=== PATIENT | female | born 1950 | race Caucasian/White ===

== ENCOUNTER 2016-10-23 16:30 | Emergency (ER) | payer MEDICARE, BC ==
[2016-10-23 16:48] LABS: BASOPHIL# 0.1 X 10^3uL (0.0-0.1); BASOPHILS 0.7 % (0.0-2.0); EOSINOPHILS 1.6 % (0.0-6.0); EOSINOPHILS# 0.1 X 10^3uL (0.0-0.4); HEMATOCRIT 49.9 % (36.0-48.0); HEMOGLOBIN 17.1 g/dL (12.0-16.0); LYMPHOCYTES 32.6 % (20.0-40.0); LYMPHOCYTES# 2.3 X 10^3uL (0.8-3.8); MEAN CELL VOLUME 86.9 fL (80.0-100.0); MEAN CORPUS. HGB CONCENTRATION 34.2 g/dL (32.0-36.0); MEAN CORPUSCULAR HEMOGLOBIN 29.8 pg (29.0-35.0); MEAN PLATELET VOLUME 7.6 fL (7.4-10.4); MONOCYTES 7.6 % (2.0-10.0); MONOCYTES# 0.5 X 10^3uL (0.2-1.0); NEUTROPHILS 57.5 % (54.0-75.0); NEUTROPHILS# 4.2 X 10^3uL (2.6-6.7); PLATELET COUNT 233 X 10^3uL (130-440); RED BLOOD COUNT 5.74 X 10^6uL (4.20-6.10); RED CELL DISTRIBUTION WIDTH 14.8 % (11.5-14.5); WHITE BLOOD COUNT 7.2 X 10^3uL (3.9-10.7)
[2016-10-23 16:57] LABS: BLOOD UREA NITROGEN 17 mg/dL (7-17); CALCIUM 10.6 mg/dL (8.4-10.2); CHLORIDE 96 mmol/L (98-107); CREATININE 0.8 mg/dL (0.5-1.0); EST GLOMERULAR FILTRATION RATE > 60 mL/min; GLUCOSE 96 mg/dL (70-100); INR 1.2; PARTIAL THROMBOPLASTIN TIME 28 sec (24-38); SODIUM 139 mmol/L (137-145)
[2016-10-23 17:09] LABS: TROPONIN I < 0.012 ng/mL (0.00-0.034)
--- NOTE | 2016-10-23 17:34 | ER NURSING DOCUMENTATION ---
Nurse's Notes [facility] ([place], [place]) Name:Azalia Nielson Age:66 yrs Sex:Female :1950 Arrival Date:10/23/2016 Time:16:30 BedTrauma-C Private MD: Diagnosis:Atrial Fibrillation;Atypical Chest Pain;Hypokalemia Presentation: 10/23 16:30 Transition of care: patient was not received from another setting of care. AIR CAT nf ACTIVATION no. 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 Risk considerations: negative evaluation for symptoms or risks of deep vein thrombosis or pulmonary embolism. Notified ED Physician of patient's arrival and CC Dr. Deng notified. 16:30 Method Of Arrival: Walk In 16:30 Presenting complaint: Patient states: arrived in [place] 2 days ago from [place], [place] today went up an additional 2000 feet in altitude and developed chest pressure and palpitations and lightheadedness, symptoms resolved prior to arriving in ER, history of respiratory and cardiovascular disease. 16:37 Acuity: DAMIEN 2 st Triage Assessment: 16:30 General: Appears in no apparent distress, well nourished, well groomed, Behavior is nf anxious, pleasant. Pain: Denies pain. Neuro: No deficits noted. Cardiovascular: Capillary refill < 3 seconds Rhythm is atrial fibrillation with rapid ventricular response Chest pain. Cardiovascular: Reports lightheadedness, prior to arrival experienced left sided chest pain and lightheadedness and palpitations at altitude around 9000 feet. Respiratory: Respiratory effort is even, unlabored, Respiratory pattern is regular. GI: Denies nausea, vomiting. : No deficits noted. Historical: - Allergies: narcotics; - Home Meds: 1. Spironolactone Oral 2. aliquis 3. Lasix Oral 4. valsartan oral - PMHx: pulmonary HTN; right heart failure; pleural effusion; ATRIAL FIB; - PSHx: NA ; - Tetanus: Other NA today. - Ebola Screening: : No symptoms or risks identified at this time. . - Immunization history: NA today. - Social history: Smoking status: Patient states former smoker of tobacco. Patient/guardian denies using alcohol, street drugs. Screenin:40 Infectious Disease Risk None. Abuse screen: Denies threats or abuse. Nutritional nf screening: No deficits noted. Assessment: 16:30 Pain: Denies pain. NA Pain began NA; pain resolved [employer]. Cardiovascular: Heart tones nf present. Respiratory: No deficits noted. 16:45 Reassessment: Patient denies pain at this time. Patient states feeling better. Patient nf states symptoms have improved. Vital Signs: 16:34 BP 138 / 101; Pulse 117; Resp 22; Temp 98.1(O); Pulse Ox 95% on R/A; Weight 65.77 kg; nf Height 5 ft. 7 in. (170.18 cm); Pain 0/10; 17:03 BP 171 / 100; Pulse 90; Resp 18; Pulse Ox 99% on R/A; Pain 0/10; nf 17:34 BP 141 / 81; Pulse 87; Resp 16; Pulse Ox 96% on R/A; Pain 0/10; nf 16:34 Body Mass Index 22.71 (65.77 kg, 170.18 cm) nf ED Course: 16:30 Patient arrived in ED. ama 16:30 Arm band placed on Bed in low position Call Light in Reach Gowned HOB Elevated Side nf rails up x1. Family accompanied patient. 16:30 Cardiac Monitoring On for Nurse Monitoring only. Pulse Ox - RN Monitoring Only NIBP On nf - RN Monitoring Only. Door closed. Noise minimized. Lights dimmed. Moved to private room. Verbal reassurance given. Warm blanket given. Pillow given. 16:34 EKG done. (by ED staff). Reviewed by Berry Deng MD. nf 16:35 Oxygen Oxygen administration via nasal cannula @ 2L/min. nf 16:37 Berry Deng MD is Attending Physician. sc 16:[address] 16:40 Inserted peripheral IV: 20 gauge in right antecubital area and blood collected. sc1 16:40 Valuables Remains with patient Adult w/ patient. nf 16:48 Jennifer Vásquez, BETTIE is Primary Nurse. nf 16:57 EKG attached sc1 Administered Medications: 17:30 Drug: K-Lyte Effervescent Tablet 50 mEq; Route: PO; nf 17:34 Follow up: Response: Medication administered at discharge. nf Outcome: 17:13 Discharge ordered by . sc 17:34 Patient left the ED. nf 17:34 Discharged to home ambulatory, with family, with friend. nf 17:34 Condition: improved 17:34 Discharge Assessment: Patient awake, alert and oriented x 3. No cognitive and/or functional deficits noted. Patient verbalized understanding of disposition instructions. 17:34 Discharge instructions given to patient, family, friend, Instructed on discharge instructions, follow up and referral plans. Demonstrated understanding of instructions. 17:34 IV D/Skyler 10/24 17:12 Discharge F/U Call: Unable to reach: left voicemail: [email or web address] Signatures: Bailey Hernandez RN RN st Campbell, Sandy, RN RN sc Jennifer Vásquez RN RN nf Chew, Scott, MD MD sc Strickland, Doug Michel ms, Reg Reg Claudia Ferrara mk4
--- NOTE | 2016-10-23 17:35 | ER PHYSICIAN DOCUMENTATION ---
Physician Documentation [facility] Name:Azalia Nielson Age:66 yrs Sex:Female :1950 Arrival Date:10/23/2016 Time:16:30 BedTrauma-C Private MD: Berry West Disposition: 10/23 17:11 Critical Care: not applicable. sc Disposition: 10/23/16 17:13 Discharged to Home/Self Care. Impression: Atrial Fibrillation, Atypical Chest Pain, Hypokalemia. - Condition is Fair. - Discharge Instructions: ATRIAL FIBRILLATION, HYPOKALEMIA, CHEST PAIN Atypical - CHEST PAIN, Uncertain Cause. - Medical Reconciliation form form. - Follow up: Private Physician; When: 1 - 2 days; Reason: Recheck today's complaints, Continuance of care. - Problem is new. - Symptoms have improved. HPI: 16:58 This 66 yrs old Female presents to ER via Walk In with complaints of Chest sc Pressure. 16:58 The patient or guardian reports chest pain that is located primarily in the anterior sc chest wall. Onset: today. The pain does not radiate. There has been no movement of pain. Associated signs and symptoms: Pertinent positives: dizziness, lightheadedness, palpitations. The chest pain is described as a pressure. Duration: The patient or guardian reports a single episode, that lasted 30 minute(s). Severity of pain: At its worst the pain was moderate in the emergency department the pain has resolved and did so earlier today, improved immediately with lower altitude. Historical: - Allergies: narcotics; - Home Meds: 1. Spironolactone Oral 2. aliquis 3. Lasix Oral 4. valsartan oral - PMHx: pulmonary HTN; right heart failure; pleural effusion; ATRIAL FIB; - PSHx: NA ; - Tetanus: Other NA today. - Ebola Screening: : No symptoms or risks identified at this time. . - Immunization history: NA today. - Social history: Smoking status: Patient states former smoker of tobacco. Patient/guardian denies using alcohol, street drugs. ROS: 17:00 Constitutional: Negative for fever, chills, and weight loss. sc Eyes: Negative for injury, pain, redness, and discharge. ENT: Negative for injury, pain, and discharge. Neck: Negative for injury, pain, and swelling. Respiratory: Negative for shortness of breath, cough, wheezing, and pleuritic chest pain. Abdomen/GI: Negative for abdominal pain, nausea, vomiting, diarrhea, and constipation. Back: Negative for injury and pain. MS/Extremity: Negative for injury and deformity. Skin: Negative for injury, rash, and discoloration. 17:00 Neuro: Negative for headache, weakness, numbness, tingling, and seizure. sc 17:00 Cardiovascular: Positive for chest pain, palpitations. Exam: Constitutional: This is a well developed, well nourished patient who is awake, alert, and in no acute distress. Head/Face: Normocephalic, atraumatic. Eyes: Pupils equal round and reactive to light, extra-ocular motions intact. Lids and lashes normal. Conjunctiva and sclera are non-icteric and not injected. Cornea within normal limits. Periorbital areas with no swelling, redness, or edema. ENT: Nares patent. No nasal discharge, no septal abnormalities noted. Tympanic membranes are normal and external auditory canals are clear. Oropharynx with no redness, swelling, or masses, exudates, or evidence of obstruction, uvula midline. Mucous membranes moist. Neck: Trachea midline, no thyromegaly or masses palpated, and no cervical lymphadenopathy. Supple, full range of motion without nuchal rigidity, or vertebral point tenderness. No meningismus. Chest/axilla: Normal chest wall appearance and motion. Nontender with no deformity. No lesions are appreciated. Abdomen/GI: Soft, non-tender, with normal bowel sounds. No distension or tympany. No guarding or rebound. No evidence of tenderness throughout. Back: No spinal tenderness. No costovertebral tenderness. Full range of motion. 17:00 Skin: Warm, dry with normal turgor. Normal color with no rashes, no lesions, and no sc evidence of cellulitis. 17:00 Cardiovascular: Rate: tachycardic, Rhythm: irregularly irregular. 17:00 Respiratory: moderate respiratory distress is noted, Respirations: normal, Breath sounds: are normal, clear throughout. Vital Signs: 16:34 BP 138 / 101; Pulse 117; Resp 22; Temp 98.1(O); Pulse Ox 95% on R/A; Weight 65.77 kg; nf Height 5 ft. 7 in. (170.18 cm); Pain 0/10; 17:03 BP 171 / 100; Pulse 90; Resp 18; Pulse Ox 99% on R/A; Pain 0/10; nf 17:34 BP 141 / 81; Pulse 87; Resp 16; Pulse Ox 96% on R/A; Pain 0/10; nf 16:34 Body Mass Index 22.71 (65.77 kg, 170.18 cm) nf MDM: 16:37 Patient medically screened. sd 16:57 EKG attached [facility] 17:10 Differential diagnosis: abnormal EKG, acute myocardial infarction, congestive heart sc failure. Patient took aspirin within the past 24 hours. Patient did not receive fibrinolytic due to NA. Data reviewed: vital signs, nurses notes, and as a result, I will continue to observe the patient. Data interpreted: manager monitoring: rate is 110 beats/min. ECG:. 10/23 16:50 Order name: CBC AUTO DIF, MDIF/RMOR IF IND [facility] / 17:13 Interpretation: Normal. sd / 16:58 Order name: PROTIME/INR [facility] / 17:13 Interpretation: Normal. sd / 16:58 Order name: PARTIAL THROMBOPLASTIN TIME [facility] / 17:13 Interpretation: Normal. sd / 16:59 Order name: BASIC METABOLIC PANEL [facility] / 17:13 Interpretation: Normal Except: POTASSIUM 3.0. sd / 16:59 Order name: MAGNESIUM [facility] / 17:13 Interpretation: Normal. sd / 17:09 Order name: TROPONIN I [facility] / 17:13 Interpretation: Normal. sd / 17:14 Order name: BNP,NT-PRO [facility] / 07:33 Order name: CHEST; SINGLE VIEW [id number] [facility] / 16:47 Order name: 12-lead EKG; Complete Time: 16:51 sd 10/23 16:53 Order name: Oxygen; Complete Time: 16:53 EC:10 Rate is 95 beats/min. Rhythm is irregularly irregular, A fib. QRS [place] is Normal. CA sc interval is normal. QRS interval is normal. QT interval is normal. No Q waves. T waves are Normal. No ST changes noted. Clinical impression: Atrial Fibrillation. Interpreted by me. Reviewed by me. Dispensed Medications: 17:30 Drug: K-Lyte Effervescent Tablet 50 mEq; Route: PO; nf 17:34 Follow up: Response: Medication administered at discharge. nf Signatures: Bailey Hernandez RN RN st Campbell, Sandy, RN RN sd1 Jennifer Vásquez RN RN nf Chew, Scott, MD MD sd
[2016-10-23] MEDS ORDERED: POTASSIUM EFF 25 MEQ TABLET ONE (17:38)
--- NOTE | 2016-10-25 07:32 | RADIOLOGY REPORT ---
HISTORY: Chest pressure COMPARISON: None. FINDINGS: 2 portable frontal views of the chest obtained. Heart size within normal limits. The lungs are clear bilaterally. No effusion or pneumothorax. Osseous structures are unremarkable. IMPRESSION: No acute abnormality. Final Electronic Signature: This report was electronically signed by Felix Toth MD on 10/25/2016 7:30 AM. delmi /
== END 2016-10-23 17:34 | disposition home or self-care (01) ==
LOC: ER 16:30
DX: I48.91 Unspecified atrial fibrillation (principal); R07.89 Other chest pain; E87.6 Hypokalemia; R42 Dizziness and giddiness; I27.0 Primary pulmonary hypertension; Z79.899 Other long term (current) drug therapy; Z79.01 Long term (current) use of anticoagulants
CPT/HCPCS: 71010; 80048; 83735; 83880; 84484; 85025; 85610; 85730; 93005; 93010; 99284; 99285